=== PATIENT | female | born 1970 | race Caucasian/White ===

== ENCOUNTER 2022-06-29 09:35 | Emergency (ER) | payer OTHER ==
[~2022-06-29] VITALS: Ht 157.5 cm; Wt 55.3 kg
[2022-06-29 11:11] VITALS: BP_SYST 122
[2022-06-29] MEDS ORDERED: DIPHTH,PERTUSS(ACELL),TET VAC 0.5 ML VIAL (Tdap) I.M. ONE (11:30)
[2022-06-29] MEDS ORDERED: SILVER SULFADIAZINE 1%, 25 GM TOPICAL CREAM (SSD) TP ONE (11:30)
[2022-06-29] MEDS ORDERED: HYDROcodone/ACETAMIN 5-325 MG TAB (NORCO/ VICODIN) PO ONE (11:30)
--- NOTE | 2022-06-29 11:30 | NUR ---
Pt brought in by self from home Chief complaint right palm blistered burn. Mechanism of injury curling iron one hour ago. Pt states picked up the iron and released with immediate blistering to palm. Pt is 10/10 pain. Pt states no past medical history, speaking complete sentences, aaox3, no acute distress. Cap refill less than 3 seconds
[2022-06-29] MEDS ORDERED: HYDR-3917 PO (11:31)
--- NOTE | 2022-06-29 11:35 | NUR ---
ER at bedside examining patient.
--- NOTE | 2022-06-29 11:50 | NUR ---
Patient given written and verbal discharge instructions and verbalizes understanding. ER MD discussed with patient the results and treatment provided. Patient in stable condition. ID arm band removed. Rx of silvadene and [place] given. Patient educated on pain management and to follow up with PMD. Opportunity for questions provided and answered. Medication side effect fact sheet provided.
[2022-06-29 12:00] VITALS: BP_SYST 124
== END 2022-06-29 11:50 | disposition home or self-care (01) ==
LOC: SED 09:35
DX: T23.201A Burn of second degree of right hand, unspecified site, initial encounter (principal); Z79.899 Other long term (current) drug therapy; Y27.3XXA Contact with hot household appliance, undetermined intent, initial encounter; Y93.89 Activity, other specified; Y92.89 Other specified places as the place of occurrence of the external cause; Y99.8 Other external cause status
CPT/HCPCS: 90715; 99283